=== PATIENT | female | born 1980 | race Caucasian/White ===

== ENCOUNTER 2023-09-03 17:30 | Emergency (ER) | payer OTHER ==
[~2023-09-03] VITALS: Ht 165.1 cm; Wt 81.0 kg
[2023-09-03] MEDS ORDERED: OMEP10CASR PO (17:49)
[2023-09-03 19:09] LABS: BASO # 0.1 10^3/uL (0.0-0.2); BASO % 1.1 % (0.0-1.0); EOS # 0.2 10^3/uL (0.0-0.5); EOS % 2.5 % (0.0-3.0); HEMATOCRIT 47.5 % (36.0-47.0); HEMOGLOBIN 15.4 g/dl (12.0-15.5); MEAN CORPUSCULAR HEMOGLOBIN 26.4 pg (27.0-33.0); MEAN CORPUSCULAR HGB CONC 32.4 g/dl (32.0-36.5); MEAN CORPUSCULAR VOLUME 81.3 fl (80.0-96.0); MONO # 0.6 10^3/uL (0.0-0.8); NEUTROPHILS # 3.3 10^3/uL (1.5-8.5); NEUTROPHILS % 53.2 % (36.0-66.0); PLATELET COUNT, AUTOMATED 140 10^3/uL (150-450); RED BLOOD COUNT 5.84 10^6/uL (4.00-5.40); WHITE BLOOD COUNT 6.1 10^3/uL (4.0-10.0)
[2023-09-03 19:52] LABS: BLOOD UREA NITROGEN 11 MG/DL (9-23); CALCIUM LEVEL 8.7 MG/DL (8.5-10.1); CARBON DIOXIDE LEVEL 26 MMOL/L (20-31); CHLORIDE LEVEL 101 MMOL/L (98-107); CREATININE FOR GFR 0.43 MG/DL (0.55-1.30); GLOMERULAR FILTRATION RATE > 60.0 (>58); GLUCOSE, FASTING 412 MG/DL (60-100); POTASSIUM SERUM 4.1 MMOL/L (3.5-5.1); SODIUM LEVEL 135 MMOL/L (136-145)
[2023-09-03] MEDS ORDERED: NS 1,000 ML IV ONE (20:40)
[2023-09-03] MEDS ORDERED: KETOROLAC 30 MG/ML 1ML VIAL IV ONE (20:40)
[2023-09-03] MEDS ORDERED: HumuLIN R (REGULAR) INSULIN (NovoLIN R) **100U/ML** PER UNIT SC ONE (20:40)
[2023-09-03] MEDS ORDERED: ISOVUE-370 76% 100ML VIAL As Ordered ONE (20:44)
[2023-09-03 20:59] LABS: ERYTHROCYTE SEDIMENTATION RATE 62 mm/hr (0-20)
[2023-09-03 21:08] LABS: VENOUS BASE EXCESS 1.1 (-2.0-2.0); VENOUS HCO3 25.8 MMOL/L (23.0-27.0); VENOUS O2 SATURATION 86.6 % (60.0-80.0); VENOUS PARTIAL PRESSURE CO2 41.3 mmHg (38.0-50.0); VENOUS PARTIAL PRESSURE O2 51.2 mmHg (30.0-50.0); VENOUS PH 7.413 UNITS (7.330-7.430); VENOUS STANDARD HCO3 25.1 MMOL/L
[2023-09-03] MEDS ORDERED: diphenhydrAMINE 50MG/ML VIAL IV ONE (22:10)
[2023-09-03] MEDS ORDERED: methylPREDNISolone 125MG 2ML VIAL IV ONE (22:10)
[2023-09-03 22:59] VITALS: BP 157/90; TEMP 97.1; O2SAT 100
[2023-09-03] MEDS ORDERED: BACT800T5 PO (23:15)
[2023-09-03] MEDS ORDERED: INSUHUMDS SC (23:15)
[2023-09-03] MEDS ORDERED: BACTRIM 160MG/800MG DS TAB PO ONE (23:20)
== END 2023-09-03 23:37 | disposition home or self-care (01) ==
LOC: M ED 17:30
DX: L03.116 Cellulitis of left lower limb (principal); K42.9 Umbilical hernia without obstruction or gangrene; K21.9 Gastro-esophageal reflux disease without esophagitis; E11.9 Type 2 diabetes mellitus without complications; K75.81 Nonalcoholic steatohepatitis (NASH); F41.9 Anxiety disorder, unspecified; F32.A Depression, unspecified; Z79.899 Other long term (current) drug therapy
CPT/HCPCS: 72193; 80048; 82803; 83605; 85025; 85652; 86140; 87040; 96374; 96375; 99284; J1815; J1885; Q9967